=== PATIENT | female | born 1990 | race Caucasian/White ===

== ENCOUNTER 2021-09-17 07:26 | Emergency (ER) | payer OTHER ==
[2021-09-17 08:17] LABS: BASOPHIL 0.6 % (0-2); EOSINOPHIL 1.7 % (0-5); HCT 38.3 % (37.0-47.0); HGB 12.2 g/dl (12.5-16.0); LYMPHOCYTE 16.3 % (15-48); MCH 28.2 pg (25.0-31.0); MCHC 31.9 g/dL (32.0-36.0); MCV 88.7 fL (78.0-100.0); MONOCYTE 5.8 % (0-12); NEUTROPHIL 75.4 % (41-80); NRBC 0; PLT 345 K/uL (150-400); RBC 4.32 M/uL (4.20-5.40); RDW 15.8 % (11.5-14.0); WBC 8.2 K/uL (4.0-10.5)
[2021-09-17 08:42] LABS: ALBUMIN 3.9 g/dL (3.4-5.0); BILIRUBIN - TOTAL 0.2 mg/dL (0.2-1.0); BUN/CREAT RATIO (CALC) 17.6 RATIO; CREATININE 0.85 mg/dL (0.51-0.95); GLOBULIN (CALCULATION) 3.1 g/dL; POTASSIUM 4.1 mmol/L (3.5-5.1)
== END 2021-09-17 10:59 | disposition home or self-care (01) ==
LOC: FER 07:26
PROVIDERS: Emergency Medicine
DX: U07.1 COVID-19 (principal); R07.89 Other chest pain; F17.200 Nicotine dependence, unspecified, uncomplicated
CPT/HCPCS: 36415; 71045; 80053; 84484; 85025; J1885; U0002